=== PATIENT | male | born 1965 | race Caucasian/White ===

== ENCOUNTER 2020-12-07 11:01 | Outpatient (CLI) | payer OTHER | END 2020-12-07 11:02 | disposition home or self-care (01) | LOC: TBSIIMAG 11:01 | PROVIDERS: ATTEND Physician Assistant | DX: M54.2 Cervicalgia (principal); M47.812 Spondylosis without myelopathy or radiculopathy, cervical region; Z98.890 Other specified postprocedural states | CPT/HCPCS: 72040 ==